=== PATIENT | female | born 1990 | race Hispanic/Latino ===

== ENCOUNTER 2017-08-10 09:34 | Observation (INO) | payer BC ==
[~2017-08-10 09:34] MED LIST: PREN-146 PO
== END 2017-08-10 12:13 | disposition home or self-care (01) ==
LOC: LDH 09:34
PROVIDERS: ADMIT Obstetrics & Gynecology; ATTEND Obstetrics & Gynecology
DX: O36.8130 Decreased fetal movements, third trimester, not applicable or unspecified (principal); Z3A.33 33 weeks gestation of pregnancy
CPT/HCPCS: 59025; 76819; G0378 ×4

== ENCOUNTER 2019-07-05 03:28 | Observation (INO) | payer BC ==
[~2019-07-05] VITALS: Ht 152.4 cm; Wt 97.1 kg
[2019-07-05] MEDS ORDERED: LACTATED RINGERS 1000ML 1,000 ML IV PRN ×2 (03:35→05:10)
[2019-07-05 04:13] LABS: BILIRUBIN,URINE Negative (NEGATIVE); COLOR,URINE Dark Yellow (YELLOW); GLUCOSE, URINE (UA) Negative (NEGATIVE); KETONES,URINE Negative (NEGATIVE); LEUKOCYTE ESTERASE ,URINE Small (NEGATIVE); NITRATE,URINE Negative (NEGATIVE); OCCULT BLOOD,URINE Negative (NEGATIVE); PH,URINE 7.5 (5.0-8.0); PROTEIN,URINE Negative (NEGATIVE)
[2019-07-05 04:19] LABS: APPEARANCE,URINE CLOUDY (CLEAR)
[2019-07-05 04:20] LABS: AMPHET/METH SCREEN,URINE NEGATIVE (NEGATIVE); BARBITURATE SCREEN, URINE NEGATIVE (NEGATIVE); BENZODIAZEPINES SCREEN,URINE NEGATIVE (NEGATIVE); CANNABINOID SCREEN,URINE NEGATIVE (NEGATIVE); COCAINE SCREEN,URINE NEGATIVE (NEGATIVE); OPIATE SCREEN,URINE NEGATIVE (NEGATIVE); PHENCYCLIDINE SCREEN,URINE NEGATIVE (NEGATIVE)
[2019-07-05 04:21] LABS: AMORPHOUS SEDIMENT,UR Few /LPF (None Seen); BACTERIA,URINE Few /HPF (None Seen); RBC,URINE None Seen /HPF (0-1); SQUAMOUS EPITHELIAL CELL,UR Many /HPF (0-2); WBC,URINE 0-1 /HPF (0-1)
[2019-07-05] MEDS ORDERED: LACTATED RINGERS 1000ML IV ONE (04:30)
[2019-07-05] MEDS ORDERED: MAGNESIUM 4GM PREMIX 100ML 100 ML IV SCH (05:15)
[2019-07-05] MEDS ORDERED: MAGNESIUM SULFATE 1,000 ML IV ONE (05:17)
[2019-07-05] MEDS ORDERED: AMPICILLIN 2GM+NS 100ML 100 ML IV ONE (05:17)
[2019-07-05] MEDS ORDERED: MAGNESIUM 2GM PREMIX 50ML 50 ML IV ONE (05:23)
[2019-07-05] MEDS: AMPICILLIN 2GM+NS 100ML 100 ML IV SCH ×3 (05:25→21:45)
[2019-07-05] MEDS: CELESTONE SOLUSPAN 6 MG/ML 5ML VIAL IM SCH (05:26)
[2019-07-05] MEDS ORDERED: CALCIUM GLUCONATE 1 GM/10 ML VIAL IV PRN (05:30)
[2019-07-05 05:58] LABS: HEMATOCRIT 34.7 % (36-48); MEAN CORPUSCULAR HEMOGLOBIN 28.1 pg (27.0-33.0); MEAN CORPUSCULAR VOLUME 87.8 fL (79-99); RED BLOOD CELL COUNT(AUTO) 3.95 MIL/uL (4.00-5.50); RED CELL DISTRIBUTION WIDTH 14.3 % (11.0-15.5); WHITE BLOOD COUNT (AUTO) 8.6 K/uL (4.8-10.8)
[2019-07-05] MEDS: MAGNESIUM SULFATE 1,000 ML IV PRN ×2 (06:16→23:02)
[2019-07-06] MEDS: AMPICILLIN 2GM+NS 100ML 100 ML IV SCH (04:10)
[2019-07-06] MEDS: CELESTONE SOLUSPAN 6 MG/ML 5ML VIAL IM SCH (06:23)
[2019-07-06 07:14] LABS: HEPATITIS Bs ANTIGEN SCREEN P Negative (Negative)
== END 2019-07-06 15:32 | disposition home or self-care (01) ==
LOC: EDH 03:28 → OBSVTOIN 03:37 → LDH 03:37 → INTOOBSV 03:37
PROVIDERS: ADMIT Obstetrics & Gynecology; ATTEND Obstetrics & Gynecology
DX: O60.03 Preterm labor without delivery, third trimester (principal); Z3A.33 33 weeks gestation of pregnancy
CPT/HCPCS: 36415; 76805; 80305; 81001; 85027; 86592; 86850; 86900; 86901; 87340; 96365; 96366 ×2; 96367; 96368; 96372; 99284; A4314; A4510; A4600; G0378 ×16; J0290 ×6; J0702 ×2; J3475 ×3; J7120 ×2

== ENCOUNTER 2019-08-14 14:19 | Inpatient (IN) | payer BC ==
[~2019-08-14] VITALS: Ht 152.4 cm; Wt 97.5 kg
[2019-08-14] MEDS ORDERED: LACTATED RINGERS 1000ML 1,000 ML IV PRN (15:23)
[2019-08-14] MEDS ORDERED: NALOXONE HCL 0.4 MG/1 ML ML IV PRN (15:30)
[2019-08-14] MEDS ORDERED: LACTATED RINGERS 500 ML 500 ML IV PRN (15:30)
[2019-08-14] MEDS ORDERED: ROPIVACAINE 0.2% 100ML VIAL 100 ML EP SCH (15:30)
[2019-08-14] MEDS ORDERED: EPHEDRINE SULFATE 50 MG/ML AMPULE IVP PRN (15:30)
[2019-08-14 15:58] VITALS: BP 123/62
[2019-08-14] MEDS ORDERED: OXYTOCIN-LR 20 UNITS/1000 ML 1,000 ML IV SCH ×2 (16:15→18:45)
[2019-08-14] MEDS ORDERED: LANOLIN 30GM OINTMENT TP PRN (18:45)
[2019-08-14] MEDS ORDERED: WITCH HAZEL 1 PAD TP PRN (18:45)
[2019-08-14] MEDS ORDERED: DIPH,PERTUSS(ACELL),TET VAC/PF 0.5 ML VIAL IM PRN (18:45)
[2019-08-14] MEDS ORDERED: ACETAMINOPHEN-CODEINE 300/30MG TAB PO PRN (18:45)
[2019-08-14] MEDS ORDERED: BENZOCAINE/LANOLIN/ALOE VERA 60 ML AEROSOL TP PRN (18:45)
[2019-08-14] MEDS: OXYTOCIN-LR 20 UNITS/1000 ML 1,000 ML IV SCH ×2 (20:24→22:10)
[2019-08-14] MEDS: DOCUSATE SODIUM 100 MG CAP PO SCH (20:24)
[2019-08-14] MEDS: IBUPROFEN 600 MG TABLET PO PRN (20:25)
[2019-08-14 20:30] VITALS: BP 128/75; PULSE 76; RESP 20; TEMP 97.9
[2019-08-14 23:54] VITALS: BP 131/53; PULSE 70; RESP 20; TEMP 99
[2019-08-15 03:06] VITALS: BP 116/57; PULSE 68; RESP 20; TEMP 98.2
[2019-08-15] MEDS: IBUPROFEN 600 MG TABLET PO PRN ×3 (03:06→17:01)
[2019-08-15 07:34] VITALS: BP 119/62; PULSE 68; RESP 18; TEMP 98.4
[2019-08-15] MEDS: DOCUSATE SODIUM 100 MG CAP PO SCH (09:11)
[2019-08-15 11:21] VITALS: BP 100/51; PULSE 91; RESP 20; TEMP 99.2
[2019-08-15 11:25] VITALS: BP 140/85; PULSE 68; RESP 18; TEMP 98.9
[2019-08-15 16:00] VITALS: BP 134/89; PULSE 70; RESP 18; TEMP 98.3
--- NOTE | 2019-08-15 19:35 | NUR ---
DISCHARGE PT LEFT UNIT VIA WHEELCHAIR WITH BABY IN ARMS, ACCOMPANIED BY SIGNIFICANT OTHER. DENIED PAIN AND HAD NO COMPLAINTS. BABY STRAPPED IN CAR SEAT. PT AND BABY TRANSPORTED BY PERSONAL VEHICLE.
== END 2019-08-15 19:35 | disposition home or self-care (01) | DRG 807 ==
LOC: EDH 14:19 → OBSVTOIN 14:20 → LDH 14:20 → WSH 20:26
PROVIDERS: ADMIT Obstetrics & Gynecology; ATTEND Obstetrics & Gynecology
PROC: 10E0XZZ Delivery of Products of Conception, External Approach (ICD-10-PCS; principal; 2019-08-14)
PROC: 4A1HXCZ Monitoring of Products of Conception, Cardiac Rate, External Approach (ICD-10-PCS; 2019-08-14)
PROC: 00HU33Z Insertion of Infusion Device into Spinal Canal, Percutaneous Approach (ICD-10-PCS; 2019-08-14)
PROC: 3E0R3BZ Introduction of Anesthetic Agent into Spinal Canal, Percutaneous Approach (ICD-10-PCS; 2019-08-14)
PROC: 3E0234Z Introduction of Serum, Toxoid and Vaccine into Muscle, Percutaneous Approach (ICD-10-PCS; 2019-08-15)
DX: O69.1XX0 Labor and delivery complicated by cord around neck, with compression, not applicable or unspecified (principal); Z37.0 Single live birth; Z3A.38 38 weeks gestation of pregnancy; Z23 Encounter for immunization